=== PATIENT | female | born 1995 | race Caucasian/White ===

== ENCOUNTER 2021-12-19 15:25 | Outpatient (CLI) | payer BC, SELFPAY ==
[2021-12-19 18:29] LABS: HIV 1/2/P24 Combo Screen* Negative (Negative)
[2021-12-19 19:49] LABS: Hepatitis B Surface Antigen* Negative (Negative)
[2021-12-19 20:06] LABS: Hepatitis C Virus Antibody* Negative (Negative)
[2021-12-19 20:43] LABS: Chlamydia DNA Amplified* NOT DETECTED (No Detected); GC DNA Amplified* NOT DETECTED (No Detected)
[2021-12-21 14:27] LABS: Rapid Plasma Reagin (RPR) Non Reactive (Non Reactive)
[2021-12-21 14:42] LABS: Varicella-Zoster Virus Ab, IgG 25.2 IV
[2021-12-21 14:43] LABS: Rubella Antibody IgG 20.8 IU/mL
== END 2021-12-19 15:26 | disposition home or self-care (01) ==
PROVIDERS: Visit Provider Physician Assistant
DX: Z34.91 Encounter for supervision of normal pregnancy, unspecified, first trimester (principal); Z12.4 Encounter for screening for malignant neoplasm of cervix; Z3A.11 11 weeks gestation of pregnancy
CPT/HCPCS: 76817; 86592; 86703; 86762; 86787; 86803; 86850; 86900; 86901; 87086; 87340; 87491; 87591; 87624; 88175

== ENCOUNTER 2022-03-06 08:00 | Outpatient (CLI) | payer BC, SELFPAY ==
--- NOTE | 2022-03-06 08:15 | CRLHL7_ITS ---
For Patients: As a result of the Century Cures Act, medical imaging exams and procedure reports are released immediately into your electronic medical record. You may view this report before your referring provider. If you have questions, please contact your health care provider. INDICATION: Evaluate anatomy. COMPARISON: 12/19/2021 TECHNIQUE: Real time delgado scale imaging of the fetus was performed as well as color Doppler analysis of the umbilical vessels. FINDINGS: Sonographic imaging demonstrates a single living intrauterine gestation. Fetus demonstrates a regular cardiac rate of 154 beats per minute. Fetus has a vertex position. The placenta lies posteriorly without evidence of placenta previa. The edge of the placenta is located 5.3 cm from the internal cervical os. Amniotic fluid volume appears normal. Single deepest vertical pocket: 4.7 cm. The cervix is closed and measures 4.1 cm in length. The composite ultrasound gestational age is calculated at 21 weeks 2 days with an estimated sonographic due date of 07/15/2022. The estimated weight is 414 grams which lies at the 93rd %. The following biometric measurements were obtained: Biparietal diameter: 5.2 cm/21 weeks 5 days 93rd% Head circumference: 18.9 cm/21 weeks 1 day 80th% Abdominal circumference: 16.4 cm/21 weeks 3 days 81st% Femur length: 3.5 cm/21 weeks 1 day 70th% The HC/AC ratio measures: 1.15 range (1.06-1.24) On anatomic survey, there is a normal appearance of the cerebral ventricles, cavum septi pellucidi, cisterna magna and cerebellum. The nose, lips, and facial profile appear normal. The cervical, thoracic and lumbar spine are well visualized and appear normal. There is a normal four-chamber heart view and the left and right ventricular outflow tracts appear normal. The diaphragm and stomach appear normal. The kidneys and bladder also appear normal. There is a normal three-vessel cord and cord insertion site. The four extremities appear normal. IMPRESSION: Sonographic age 21 weeks 2 days and sonographic due date of 07/15/2022. Sonographic age 1 week ahead of the clinical age. Estimated weight 93rd percentile. Abdominal circumference 81st percentile. No intrinsic abnormalities noted on anatomic survey. Dictated by Que Johnston MD @ 03/06/2022 10:31:30 AM (Electronically Signed)
== END 2022-03-06 08:01 | disposition home or self-care (01) ==
LOC: US 08:00
PROVIDERS: Visit Provider Physician Assistant
DX: Z34.92 Encounter for supervision of normal pregnancy, unspecified, second trimester (principal); Z3A.20 20 weeks gestation of pregnancy
CPT/HCPCS: 76805

== ENCOUNTER 2022-05-03 15:10 | Outpatient (CLI) | payer BC, SELFPAY | END 2022-05-03 15:11 | disposition home or self-care (01) | LOC: NFLDREF 05-06 08:18 | PROVIDERS: Visit Provider Registered Nurse | DX: Z34.93 Encounter for supervision of normal pregnancy, unspecified, third trimester (principal); Z3A.28 28 weeks gestation of pregnancy | CPT/HCPCS: 86592 ==

== ENCOUNTER 2022-06-06 08:32 | Outpatient (CLI) | payer BC, SELFPAY ==
--- NOTE | 2022-06-06 08:45 | CRLHL7_ITS ---
For Patients: As a result of the Century Cures Act, medical imaging exams and procedure reports are released immediately into your electronic medical record. You may view this report before your referring provider. If you have questions, please contact your health care provider. INDICATION: Third trimester scan, evaluate growth. COMPARISON: 03/06/2022 TECHNIQUE: Real time delgado scale imaging of the fetus was performed. FINDINGS: Sonographic imaging demonstrates a single living intrauterine gestation. Fetus demonstrates a regular cardiac rate of 159 beats per minute. Fetus has a vertex position. The placenta lies posteriorly. Amniotic fluid volume appears normal and there is a single deepest vertical pocket: 3.5 cm. The estimated weight is 2705gm which lies at the 94th %. On the prior OB ultrasound exam dated 03/06/2022 the estimated weight was at the 93rd%. BPD greater than 97th percentile. HC 88th percentile. AC 94th percentile. FL 77th percentile. The HC/AC ratio measures 1.03 range (0.93-1.08). IMPRESSION: Sonographic gestational age 36 weeks 0 days and sonographic due date 07/04/2022. Sonographic age 18 days ahead of the clinical age. Estimated weight 94th percentile. Abdominal circumference 94th percentile. BPD greater than 97th percentile. Dictated by Que Johnston MD @ 06/06/2022 9:34:24 AM (Electronically Signed)
== END 2022-06-06 08:33 | disposition home or self-care (01) ==
LOC: US 08:34
PROVIDERS: Visit Provider Obstetrics & Gynecology
DX: Z34.93 Encounter for supervision of normal pregnancy, unspecified, third trimester (principal); Z3A.36 36 weeks gestation of pregnancy
CPT/HCPCS: 76816

== ENCOUNTER 2022-06-27 10:33 | Outpatient (CLI) | payer BC, SELFPAY ==
[2022-06-28 12:14] LABS: Strep B DNA Probe NEGATIVE (Negative)
[2022-06-29 07:32] LABS: Strep B Pen/Amox Allergy No
== END 2022-06-27 10:34 | disposition home or self-care (01) ==
LOC: NFLDREF 10:49
PROVIDERS: Visit Provider Obstetrics & Gynecology
DX: Z34.90 Encounter for supervision of normal pregnancy, unspecified, unspecified trimester (principal)
CPT/HCPCS: 87081; 87653

== ENCOUNTER 2024-02-05 07:57 | Outpatient (CLI) | payer BC, SELFPAY ==
--- NOTE | 2024-02-05 08:15 | CRLHL7_ITS ---
For Patients: As a result of the Cures Act, medical imaging exams and procedure reports are released immediately into your electronic medical record. You may view this report before your referring provider. If you have questions, please contact your health care provider. HISTORY: Dating and viability COMPARISON: None available of this gestation. TECHNIQUE: Transvaginal ultrasound examination of the early was performed. FINDINGS: A single intrauterine gestational sac is seen with a pole. The crown-rump length measurement of 2.1 cm gives an estimated gestational age of 8 weeks 5 days with an estimated date of delivery of 09/11/2024. This correlates well with the LMP of 12/06/2019 for which gives a clinical age of 8 weeks 5 days. Regular cardiac activity is seen at 155 BPM. There is no sign of free fluid in the pelvis. The left ovary has a slightly hypoechoic region measuring 2.5 x 1.6 x 1.7 centimeters with mildly increased color Doppler flow consistent with a corpus luteum cyst of . The ovaries are otherwise normal in appearance. IMPRESSION: Single intrauterine gestation with estimated age of 8 weeks 5 days. Regular cardiac activity is seen. Dictated by Randall Alcantara MD @ 02/05/2024 11:30:03 AM (Electronically Signed)
== END 2024-02-05 07:58 | disposition home or self-care (01) ==
LOC: US 07:58
PROVIDERS: Visit Provider Physician Assistant
DX: Z34.91 Encounter for supervision of normal pregnancy, unspecified, first trimester (principal); Z3A.08 8 weeks gestation of pregnancy
CPT/HCPCS: 76817

== ENCOUNTER 2024-02-05 09:09 | Outpatient (CLI) | payer BC, SELFPAY ==
[2024-02-05 13:55] LABS: Chlamydia DNA Amplified* NOT DETECTED (No Detected); GC DNA Amplified* NOT DETECTED (No Detected)
== END 2024-02-05 09:10 | disposition home or self-care (01) ==
PROVIDERS: Visit Provider Physician Assistant
DX: Z34.91 Encounter for supervision of normal pregnancy, unspecified, first trimester (principal); Z3A.08 8 weeks gestation of pregnancy
CPT/HCPCS: 83021; 86592; 86703; 86704; 86706; 86762; 86787; 86803; 86850; 86900; 86901; 87086; 87340; 87491; 87591

== ENCOUNTER 2024-04-29 08:03 | Outpatient (CLI) | payer BC, SELFPAY | END 2024-04-29 08:04 | disposition home or self-care (01) | LOC: US 08:04 | PROVIDERS: Visit Provider Obstetrics & Gynecology | DX: Z34.92 Encounter for supervision of normal pregnancy, unspecified, second trimester (principal); Z3A.20 20 weeks gestation of pregnancy | CPT/HCPCS: 76805 ==

== ENCOUNTER 2024-06-24 13:25 | Outpatient (CLI) | payer OTHER, SELFPAY | END 2024-06-24 13:26 | disposition home or self-care (01) | LOC: NFLDREF 07-01 22:37 | PROVIDERS: Visit Provider Obstetrics & Gynecology | DX: Z34.83 Encounter for supervision of other normal pregnancy, third trimester (principal) | CPT/HCPCS: 86592 ==

== ENCOUNTER 2024-08-11 13:20 | Outpatient (CLI) | payer OTHER, SELFPAY | END 2024-08-11 13:21 | disposition home or self-care (01) | LOC: NFLDREF 08-15 08:53 | PROVIDERS: Visit Provider Obstetrics & Gynecology | DX: Z34.93 Encounter for supervision of normal pregnancy, unspecified, third trimester (principal); Z3A.35 35 weeks gestation of pregnancy | CPT/HCPCS: 87081; 87653 ==

== ENCOUNTER 2024-08-19 11:49 | Outpatient (CLI) | payer OTHER, SELFPAY ==
--- NOTE | 2024-08-19 12:15 | CRLHL7_ITS ---
For Patients: As a result of the Century Cures Act, medical imaging exams and procedure reports are released immediately into your electronic medical record. You may view this report before your referring provider. If you have questions, please contact your health care provider. OB ULTRASOUND FOLLOW-UP/LIMITED, 08/19/2024 CLINICAL HISTORY: Growth for breech presentation. COMPARISON: 04/29/2024, 02/04/2025. TECHNIQUE: Real time delgado scale imaging of the fetus was performed. Transabdominal imaging performed. FINDINGS: NOA by LMP: 09/11/2024. GA: 36 weeks 5 days. Cervix: Not visualized. Positioning: Vincent breech. Amniotic Fluid: 7 cm SDP. Placenta: Technique: TA. Placenta position: Anterior. Dopplers: heart rate: 126 bpm. BIOMETRY: BPD: 9 cm, 36 weeks 2 days. 51% HC: 33.1 cm, 37 weeks 5 days. 46% AC: 32.9 cm, 36 weeks 6 days. 66% FL: 6.9 cm, 35 weeks 2 days. 15% FL/AC Ratio: 20.88% HC/AC Ratio: 1.01. EFW: 2945 grams, 6 lb 8 oz. age by this US: 36 weeks 4 days. NOA by this US: 09/12/2024. Percentile by NOA: 48% IMPRESSION: 1. Sonographic gestational age 36 weeks 4 days and sonographic due date 09/12/2024. Good correlation with dates. Normal interval growth. 2. Estimated weight 48th percentile. Abdominal circumference 66th percentile. Que Johnston M.D. Diagnostic Radiologist [email or web address] Transcribed: 1:43 pm DW/Dictated by: Que Johnston MD @ 08/19/2024 12:40:00 PM (Electronically Signed)
== END 2024-08-19 11:50 | disposition home or self-care (01) ==
LOC: US 11:50
PROVIDERS: Visit Provider Obstetrics & Gynecology
DX: O32.1XX0 Maternal care for breech presentation, not applicable or unspecified (principal); Z3A.36 36 weeks gestation of pregnancy
CPT/HCPCS: 76816

== ENCOUNTER 2024-08-26 07:13 | Outpatient (CLI) | payer OTHER, SELFPAY ==
[2024-08-26 07:35] VITALS: PULSE 96; O2SAT 96
[2024-08-26 07:36] VITALS: BP 114/70; PULSE 86; RESP 18; TEMP 36.7
[2024-08-26] MEDS: TERBUTALINE 1 MG/ML INJ 0.25 MG SUBCUT (09:43)
--- NOTE | 2024-08-26 10:47 | PM.PROC ---
Procedure Note Date Seen: 08/26/24 Date of procedure: 08/26/24 Will [facility] bill your pro fee for this procedure?: Yes Pre-op diagnosis: 1. 36 0/7 weeks gestation, 2. Gloria breech presentation Post-op diagnosis: other ( 1. 36 0/7 weeks gestation, 2. Vertex presentation) Procedure: External cephalic version Procedure Description: A nonstress test was performed: heart rate baseline 135 beats per minute, good variability, 15 x 15 accelerations present, no decelerations, category 1. Limited OB ultrasound was performed at the bedside: Single, living, intrauterine gestation in a gloria breech maternal presentation with the back along the maternal left, grossly normal amniotic fluid volume. PROCEDURE NOTE: Informed consent was obtained for external cephalic version. Terbutaline 0.25 mg was administered to the patient subcutaneously. External cephalic version was attempted. I applied upward pressure to the breech, Nancy Vickers CNM applied pressure to the vertex, and we attempted to gently coax the fetus in a forward roll in a counter-clockwise direction. This attempt was unsuccessful, but the head was relocated from the midline to the maternal right upper quadrant. A 2nd attempt was made to coax the infant in a forwards roll in a counter-clockwise direction, as I applied pressure to the breech and Nancy again applied pressure to the vertex. This attempt was successful in converting the to a backup transverse position with the head on the maternal right. Of third attempt was made, which was again in a counter-clockwise rotation, and this attempt was successful. heart tones were noted to be normal between and after the attempts. There was a brief decrease in the heart rate to 70s following the final attempt. The patient was positioned in the left lateral recumbent position, and heart rate recovered quickly. The patient tolerated the procedure well. monitoring for 1 hour after the procedure was continued to be reassuring. Anesthesia: none Surgeon: NEEL Aguilera Stonecutter Assistant: Nancy Vickers Condition: stable Disposition: same day
--- NOTE | 2024-08-26 11:42 | PC.OBNST ---
NST Note NST Note Start: 08/26/24 07:55 Freq: ONCE Status: Active Protocol: Document 08/26/24 11:41 MMB (Rec: 08/26/24 11:42 MMB [email or web address]) NST Note 2 Para (# of births) 1 EDC 09/12/24 Gestational Age In 37 Weeks & 4 Days Weeks & Days Other Complaints Scheduled ECV Reactive Yes Appropriate for Yes Gestational Age BRIGETTE Bruce RN Date 08/26/24 Reactive Yes Appropriate for Yes Gestational Age BRIGETTE Alaniz RN Date 08/26/24 OB NST charge Yes Complete NST Note Yes via Write Note The provider's electronic signature indicates the NST is reactive/appropriate for gestational age. *Note to provider: If an addendum is required, open the patient's chart and click on the note under the Nurse/Allied Health tab.
== END 2024-08-26 11:05 | disposition home or self-care (01) ==
LOC: OB CLI 07:15 → OB 07:19
PROVIDERS: Visit Provider Obstetrics & Gynecology
DX: O32.1XX0 Maternal care for breech presentation, not applicable or unspecified (principal); Z3A.36 36 weeks gestation of pregnancy
CPT/HCPCS: 59025; 59412; 76815; G0463; J3105

== ENCOUNTER 2024-09-13 01:22 | Inpatient (IN) | payer OTHER, SELFPAY ==
[2024-09-13] VITALS (79 sets, daily range): BP systolic 86–125; BP diastolic 50–82; PULSE 75–106; RESP 16–20; TEMP 36.3–36.7; O2SAT 95–100
[2024-09-13] MEDS: LACTATED RINGERS 1000 ML 1,000 ML 1200 ML IV (01:34)
[2024-09-13] MEDS: AMPICILLIN 2 GM in 0.9 % SODIUM CHLORIDE Mini-bag 100 ML IVPB (01:44)
[2024-09-13 01:45] LABS: Hematocrit 34.9 % (33.0-51.0); Hemoglobin* 12.4 gm/dL (12.0-16.0); Immature Granulocytes Abs Auto 0.03 K/uL (0.00-0.30); Immature Granulocytes Pct Auto 0.3 %; Mean Corpuscular HGB Conc 36 gm/dL (32-36); Mean Corpuscular Hemoglobin 33 pg (26-34); Mean Corpuscular Volume 93 fL (80-100); RDW Coefficient of Variation % 12.0 % (11.5-15.5); Red Blood Count 3.75 m/uL (4.00-5.20); White Blood Count* 10.96 K/uL (4.50-11.00)
[2024-09-13 02:01] LABS: Lymphocytes Absolute Auto 1.40 K/uL (0.90-2.90); Slide Review Reflex No
--- NOTE | 2024-09-13 02:23 | P.ANBPRC_ITS ---
[facility] Medical History macrosomia affecting management of mother, antepartum ?O36.60X0 - Maternal care for excessive growth, unspecified trimester, not applicable or unspecified (ICD-10) Normal vaginal delivery ?O80 - Encounter for full-term uncomplicated delivery (ICD-10) Second degree perineal laceration during delivery ?O70.1 - Second degree perineal laceration during delivery (ICD-10) No chronic problems Surgical History History of wisdom tooth extraction ?K08.409 - Partial loss of teeth, unspecified cause, unspecified class (ICD- 10) Social History Narrative: SOCIAL HISTORY: Occupation: Dentist. Marital status: . Episcopalian/cultural needs: no. Chemical or radiation exposure:no. Pre- tobacco use: no. Pre- alcohol use: no. Current tobacco use: no. Current alcohol use: no. Recreational drug use: no. Dietary restrictions: no. Blood transfusion acceptable in an emergency: yes. PSYCHOSOCIAL HISTORY: History of depression or currently depressed: no. Current or past physical, emotional, or sexual mistreatment: no. Problems that will make it hard to make it to appointments: no. What is your current living situation?: I presently have a place to live Problems where you live: no known problems In the past 12 months, utilities in danger of being shut off: no In past 12 months, lack of transportation kept you from medical appts, meetings, work, or getting things needed for daily living: no In the past 12 mos, have been you worried that your food would run out before you had money to buy more?: never true In the past 12 mos, the food you bought just didn't last and you didn't have money to buy more?: never true Smoking Status: Never smoker How often does anyone, including family, friends and others, physically hurt you : never How often does anyone, including family, friends and others, insult or talk down to you: never How often does anyone, including family, friends and others, threaten you with harm: never How often does anyone, including family, friends and others, scream or curse at you: never Meds Home Medications and Allergies Home Medications ?Medication ?Instructions ?Recorded ?Confirmed ?Type prenat.vits,terrance,rdx-pjyl-hdqaw 1 tab PO QDAY 12/19/21 09/13/24 History Allergies Allergy/AdvReac Type Severity Reaction Status Date / Time No Known Drug Allergies Allergy Verified 09/09/24 09:01 Results Labs Labs: Laboratory Results - last 24 hr 09/13/24 01:30 WBC 10.96 RBC 3.75 L Hgb 12.4 Hct 34.9 MCV 93 MCH 33 MCHC 36 RDW Coeff of Brendon 12.0 Plt Count 151 Neut % (Auto) 79.1 H Lymph % (Auto) 13.1 L [place] % (Auto) 6.8 Eos % (Auto) 0.5 Baso % (Auto) 0.2 Neut # (Auto) 8.70 H Lymph # (Auto) 1.40 [place] # (Auto) 0.70 Eos # (Auto) 0.06 Baso # (Auto) 0.02 Abs Immat Gran (auto) 0.03 Imm/Tot Granulo (auto) 0.3 Vital Signs Vital Signs: Last Vital Signs Temp 98.1 F 09/13/24 00:26 Pulse 75 09/13/24 02:20 Resp 16 09/13/24 00:26 BP 106/53 L 09/13/24 02:20 Pulse Ox 100 09/13/24 02:22 Weight: 78.018 kg Height: 162.56 cm Anesthesia Procedures Epidural Insertion Patient Location: OB Start Time: 01:45 Stop Time: 02:23 Start Date: 09/13/24 Stop Date: 09/13/24 Reason for Block: procedure for pain Patient Position: sitting Performed By: Meliton Wilson Preanesthetic Checklist: IV checked, risks and benefits discussed, surgical consent, monitors and equipment checked, pre-op evaluation, timeout performed and anesthesia consent Prep: chlorhexidine gluconate Monitoring: blood pressure monitoring, continuous pulse oximetry and heart rate Approach: midline Vertebral Space: lumbar (1-5) Epidural Technique: BERHANE air Needle Type: Tuohy needle Injection Technique: continuous catheter Needle gauge: 17 Needle Length (cm): 10 cm Needle Insertion Depth (cm): 7 Catheter Gauge: 19 Catheter Type: multi-orifice Catheter at skin depth (cm): 13 Test Dose Result: negative and lidocaine 1.5% with epinephrine 1 to 200,000
[2024-09-13] MEDS: ROPIVACAINE 0.2% 100 ml 100 ML 12 MG EPIDURAL (02:25)
[2024-09-13] MEDS: LIDOCAINE 2% (PF) 5 ML VIAL EPIDURAL (02:28)
[2024-09-13] MEDS: LACTATED RINGERS 1000 ML 1,000 ML 75 ML IV (03:30)
[2024-09-13] MEDS: AMPICILLIN 1 GM in 0.9 % SODIUM CHLORIDE Mini-bag 100 ML IVPB (05:49)
--- NOTE | 2024-09-13 05:54 | W.PM.LDBA ---
Subjective History of Present Illness Narrative: Patient is being admitted to Labor and Delivery for labor. She is a 29 year old at 40 2/7 weeks gestation. Her full history and physical was dictated by Dr. Bassett on 08/19. Please see this for details. She presented in active labor and received an epidural. Fetus was confirmed cephalic on first exam by RN. Specific Issues/Plans Partner: Saeid H&P: CGM on 08/19/24 # Breech presentation noted 08/05. Discussed ECV and Follow up position next visit: still gloria breech at 36 5/7 weeks Growth US 08/19/24: EFW: 48th, SDP:7cm. Undecided 08/19/24, leaning towards scheduling ECV early next week-will call clinic to schedule ECV successful on 08/26/24! # Hepatitis B non immune 1st dose of series given 04/01/24 2nd dose given: 04/29/24 3rd dose due 09/29/24 Imagin04/29/2024: FAS - anterior placenta, normal amniotic fluid volume, three-vessel cord, eccentric placental insertion, no anomalies, EFW 62% Vaccinations: Covid: Declined Flu: Declined Tdap: 07/08/2024 RSV: N/A Hep B: completing series (see above) GBS: positive 32 week mental health: [] Last pap: 12/19/21, NIL/-HPV OB - Problem Based A/P Additional Plan (1) : Status: Acute Plan Labor in term Category 1 tracing GBS positive: begin ampicillin expectant mamagement. REceiving epidural OB Exam Physical Exam Vital signs: Temp Pulse Resp BP Pulse Ox 97.4 F L 103 H 16 116/67 98 09/13/24 02:26 09/13/24 05:47 09/13/24 00:26 09/13/24 05:47 09/13/24 02:32 Narrative: Cervical exam per RN at admit: 3 .5 / 75 / -2 tracing: Baseline 135 / accelerations present / no decelerations / moderate variabilty
[2024-09-13] MEDS: OXYTOCIN 30 unit/500 ML in NS 30 UNIT/500 ML BAG IVPB (05:55)
[2024-09-13] MEDS: IBUPROFEN 600 MG TABLET PO ×3 (09:30→21:36)
--- NOTE | 2024-09-13 10:07 | P.OBPN_ITS ---
Subjective Time Seen by Provider: 07:03 Date Seen: 09/13/24 Narrative: Renetta is a 29yo at 40w2d GA admitted overnight in the setting of spontaneous onset of labor. has been essentially uncomplicated, aside from breech malpresentation s/p successful ECV on 08/26. Patient presented in spontaneous labor on the night, status post SROM at 0416. No augmentation of labor was required. She was noted to be complete and started pushing just prior to me coming on shift at 0655. I presented the bedside. Renetta was noted to be comfortable status post epidural. Reporting pressure. Did 2 practice pushes with nurses, noted to make good descent. She is agreeable to exam. Objective Exam: General: Alert and oriented, no acute distress Psych: Appropriate mood and affect Abdomen: Gravid. Cervix: 10/100/+2 and OA. Cephalic. heart rate: Category 2. Baseline of 145 beats per minute, moderate variability, recurrent variable decelerations with pushing efforts. Gradual return to baseline of about 2 minutes with first pushing effort. Several accelerations noted around 0645. [place]: Megan Q 2-3 minutes Vital Signs: Last Vital Signs Temp 97.4 F L 09/13/24 08:44 Pulse 87 09/13/24 09:01 Resp 16 09/13/24 00:26 BP 105/58 L 09/13/24 09:01 Pulse Ox 97 09/13/24 09:14 Assessment Amniotic Membrane Status: SROM Plan Plan: Isabel is a 29yo at 40w2d GA admitted for spontaneous onset of labor. complicated only by breech malpresentation s/p ECV (confirmed vertex sine) and hepB nonimmune. Labor has progressed spontaneously without augmentation. As I presented my shift at 0700, patient was noted to be complete and pushing. Present at the bedside immediately, where cervical exam confirms she is 10/100/+2. Category 2 tracing noted for recurrent variable decelerations, overall status is reassuring given normal baseline, moderate variability and several accelerations recently before onset of pushing. Excellent descent is already noted. - Continue maternal expulsive efforts - Anticipate - Blood type A positive - GBS positive, status post adequate treatment
--- NOTE | 2024-09-13 10:18 | W.PM.VAGDEL1 ---
Procedure Procedure Done: Global Procedure Details: Normal spontaneous vaginal delivery Second degree perineal laceration repair Intrapartal Events: Labor Augmentation Delivery augmentation: pitocin Delivery monitor: external FHT Route of delivery: Laceration description: Perineal - 2nd Degree Delivery repair: Vicryl Estimated blood loss (mL): 200 Anesthesia type: Epidural Disposition: floor Complications: None Narrative: Isabel Mcclelland is a 29 yo G 2 P 1 at 40w2d GA admitted for spontaneous onset of labor. is complicated by malpresentation s/p successful ECV and hepB nonimmune. heart tones on admission were category 1. Her labor was augmented with low dose pitocin and epidural was utilized for pain management. Status of bag of tim: SROM occurred intrapartum, clear fluid. heart tones during active labor were category 2. She was complete at 0653 and started pushing at 0655. She made excellent descent throughout the second stage of labor, and had a normal spontaneous vaginal delivery at 0707. heart tones during second stage of labor were category 2 for recurrent variable decelerations, with rapid return to normal baseline with moderate variability. Baby delivered OA, restituted EBONY and the anterior and posterior shoulders delivered without difficulty. Nuchal cord: none. The cord was clamped and cut after delayed cord clamping. Active management of the third stage occurred with IV pitocin and gentle cord traction and the placenta delivered spontaneous and intact at 0717. Cord gases sent: no Cord blood sent for infant ABO: no details: - Liveborn female fetus at 0707 - weight 7lb 14 oz - APGARs were 8 and 9 at 1 and 5 minutes respectively Perineum and vagina were inspected, and the following lacerations were noted: Second-degree laceration along her previous scar. Repair was completed in the usual fashion with existing epidural under 3-0 vicryl analgesia. Excellent hemostasis was noted. The following counts were correct: sponges, needles, instruments. Mother and in stable condition following the . [place] Gender: Female presentation: vertex Placental Delivery Description: Spontaneous Cord Description: 3 Vessels total score - 1 minute: 8 total score - 5 minute: 9
[2024-09-13] MEDS: ACETAMINOPHEN 500 MG TABLET 1000 MG PO ×2 (12:31→19:07)
--- NOTE | 2024-09-13 18:54 | PM.ANPOST ---
Post Anesthesia Note Post Anesthesia Note Patient seen: Inpatient Respiratory Status: adequate Cardiovascular Status: adequate Mental Status: baseline Pain: adequate Temp: baseline Anesthetic awareness: N/A Complications: none Follow care: none
[2024-09-14 02:13] VITALS: BP 106/69; PULSE 88; RESP 16; O2SAT 96
[2024-09-14] MEDS: ACETAMINOPHEN 500 MG TABLET 1000 MG PO (02:14)
[2024-09-14 06:20] LABS: Hemoglobin* 11.3 gm/dL (12.0-16.0)
[2024-09-14] MEDS: IBUPROFEN 600 MG TABLET PO (07:25)
[2024-09-14] MEDS: DOCUSATE SODIUM 100 MG CAPSULE PO (07:25)
[2024-09-14 08:02] VITALS: BP 108/72; PULSE 97; RESP 16; TEMP 36.9; O2SAT 96
--- NOTE | 2024-09-14 08:31 | P.DS_ITS ---
DS: Providers Provider Date Seen: 09/14/24 Date of admission: 09/13/24 01:22 Primary care physician: Not a Local Provider Admitting Clinician: Court Alicea MD Attending Physician on discharge: Court Alicea MD Exam Narrative: Exam Narrative: Vital signs reviewed and are within normal limits. General: Alert and oriented, in no acute distress Psych: Appropriate mood and affect Abdomen: Soft, non distended. Fundus palpates at 1 below umbilicus, firm. No tenderness to palpation, no rebound or guarding. Extremities: No significant extremity edema. No calf tenderness/erythema. Const: Vital Signs, click to edit/add: Vital Signs - 24 hr 09/13/24 08:34 09/13/24 08:39 09/13/24 08:44 Temperature Pulse Rate Pulse Rate [Pulse Oximeter] Respiratory Rate Blood Pressure Blood Pressure [Ri ght Arm] Pulse Oximetry 97 97 98 Oxygen Delivery Me thod 09/13/24 08:44 09/13/24 08:45 09/13/24 08:49 Temperature 97.4 F L Pulse Rate 94 Pulse Rate [Pulse Oximeter] Respiratory Rate Blood Pressure 117/70 Blood Pressure [Ri ght Arm] Pulse Oximetry 98 Oxygen Delivery Me thod 09/13/24 08:54 09/13/24 08:59 09/13/24 09:01 Temperature Pulse Rate 87 Pulse Rate [Pulse Oximeter] Respiratory Rate Blood Pressure 105/58 L Blood Pressure [Ri ght Arm] Pulse Oximetry 98 98 Oxygen Delivery Me thod 09/13/24 09:04 09/13/24 09:09 09/13/24 09:14 Temperature Pulse Rate Pulse Rate [Pulse Oximeter] Respiratory Rate Blood Pressure Blood Pressure [Ri ght Arm] Pulse Oximetry 98 98 97 Oxygen Delivery Me thod 09/13/24 11:59 09/13/24 15:57 09/13/24 20:48 Temperature 98.1 F 97.7 F 98 F Pulse Rate Pulse Rate [Pulse Oximeter] 85 94 87 Respiratory Rate 16 20 16 Blood Pressure Blood Pressure [Ri ght Arm] 102/67 112/75 118/76 Pulse Oximetry 96 96 96 Oxygen Delivery Me thod Room Air Room Air Room Air 09/14/24 02:13 09/14/24 08:02 Temperature 98.5 F Pulse Rate Pulse Rate [Pulse Oximeter] 88 97 Respiratory Rate 16 16 Blood Pressure Blood Pressure [Ri ght Arm] 106/69 108/72 Pulse Oximetry 96 96 Oxygen Delivery Me thod Room Air Room Air OB - DS: Summary Hospital Course Hospital Course: The patient is a 29 year old G 2 P 2 at 40 weeks gestation that was admitted to the Center on 09/13/24 for spontaneous onset of labor. She had an uncomplicated vaginal delivery. She delivered a viable female . She is breast feeding. the patient has done well. Isabel notes she is feeling well this morning. She notes minimal abdominal/pelvic pain, really only occurring during and described as cramping. Tylenol and ibuprofen help with this. Lochia is small volume, no concerns. She is tolerating p.o. intake without nausea or vomiting. Ambulates without difficulty, no dizziness/lightheadedness, chest pain or dyspnea. AM hemoglobin of 11.3. Voiding spontaneously without difficulty. Passing flatus, no bowel movement yet. She is successfully, bonding well with baby Stefani. Peripartum Data delivery method: Vaginal Laceration description: Perineal - 2nd Degree complications: none Gender: Female Time Spent with Patient Time attestation: Total time spent providing and/or coordinating discharge services: Time spent: Less than 30 minutes Discharge Plan Discharge Disposition: Home, Self-Care Date of Admission: 09/13/24 01:22 Primary Care Provider: Provider,Not a Local Condition: Stable Anticipated Discharge Date/Time: 09/14/24 08:33 Discharge Medications: Continued prenat.vits,terrance,[id number] Tablet 1 tab PO QDAY Discharge Orders: Discharge Order (Routine); Ordered 09/14/24 Ordered By: Ida Davidson Additional Instructions: Discharge instructions were reviewed with the patient including signs and symptoms of infection and home going medications Nothing vaginally for 6 weeks: no tampons or intercourse Do not drive while taking narcotic pain medication(s) Off Work or School for 8 weeks Symptoms to report to doctor: * Bleeding that saturates more than one pad per hour * Passing clots larger than the size of a golf ball * Pain not relieved by prescribed medication * Fever above 100.4 degrees Fahrenheit * A foul vaginal odor * Difficulty in emotions, mood, and functions * Thoughts of hurting yourself and/or * Painful, reddened area in your breast * Any drainage, redness, or tenderness in your IV/epidural site * Severe headache that doesn't improve after taking medications * Changes in vision, including temporary loss of vision, blurred vision, and/or light sensitivity * Upper abdominal pain (usually under ribs on the right side) * Decrease in urination or painful, frequent urinating * Chest pain * Shortness of breath * Tenderness or pain with redness and/swelling in the calf(s) of your leg Optional 2-week visit: discuss feeding concerns, review control options and screen for anxiety/depression. 6-week visit for an annual exam. consultation services are available to all mothers and babies for the first year after delivery.? To make an appointment, please call [phone]. Activity Level: Activity as Tolerated Discharge Diet: Regular Follow Up Appointments: Provider,Not a Local [Primary Care Provider, Family Practice] Forms: [employer] Info Instructions
== END 2024-09-14 13:07 | disposition home or self-care (01) | DRG 807 ==
LOC: OB OUT 01:22 → OB 01:22
PROVIDERS: Obstetrics & Gynecology; Admitting Provider Obstetrics & Gynecology; Visit Provider Obstetrics & Gynecology
DX: O32.1XX0 Maternal care for breech presentation, not applicable or unspecified (principal); O99.824 Streptococcus B carrier state complicating childbirth; O70.1 Second degree perineal laceration during delivery; Z37.0 Single live birth; Z3A.40 40 weeks gestation of pregnancy
CPT/HCPCS: 01967; 36415; 85018; 85025; 86592; 86850; 86900; 86901; A9270; J0290; J2795; J7120